=== PATIENT | male | born 1995 | race Caucasian/White ===

== ENCOUNTER 2021-09-27 12:09 | Emergency (ER) | payer OTHER ==
[2021-09-27] MEDS ORDERED: Norflex 60 MG/2 ML IM ONE (12:33)
[2021-09-27] MEDS ORDERED: TORAdol 30 mg Injection IM ONE (12:33)
[2021-09-27] MEDS ORDERED: TORAdol 30 mg Injection ONE (12:37)
[2021-09-27] MEDS ORDERED: Norflex 60 MG/2 ML ONE (12:37)
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
[2021-09-27 13:18] VITALS: BP 139/70; PULSE 78
[2021-09-27 16:14] VITALS: O2SAT 97
== END 2021-09-27 13:19 | disposition home or self-care (01) ==
LOC: ED 12:09
DX: S39.012A Strain of muscle, fascia and tendon of lower back, initial encounter (principal); X50.0XXA Overexertion from strenuous movement or load, initial encounter; Y93.G1 Activity, food preparation and clean up; Y92.149 Unspecified place in prison as the place of occurrence of the external cause; Y99.0 Civilian activity done for income or pay; I10 Essential (primary) hypertension; Z79.899 Other long term (current) drug therapy; Z28.310 Unvaccinated for COVID-19
CPT/HCPCS: 96372; 99283; J1885; J2360